=== PATIENT | female | born 1945 | race American Indian/Alaskan Native ===

== ENCOUNTER 2016-11-22 11:45 | Outpatient (CLI) | payer MEDICARE ==
[2016-11-22 13:30] LABS: Blood Urea Nitrogen 21 mg/dL (7-17)
[2016-11-22] MEDS ORDERED: BENADRYL IV ONE (14:03)
[2016-11-22] MEDS ORDERED: BENADRYL ONE (14:06)
[2016-11-22] MEDS ORDERED: NACL ONE (14:16)
--- NOTE | 2016-11-23 08:46 | Cat Scan Report ---
CT ANGIOGRAM NECK HISTORY: Occlusion and stenosis of bilateral carotid arteries. TECHNIQUE: Helical CT images in 0.625 mm reformats. Sagittal and coronal reformatted images. Rotational MIP images. 3-dimensional volume rendering technique. NASCET criteria was utilized. FINDINGS: The visualized aortic arch, innominate artery and proximal bilateral subclavian arteries are widely patent with less than 10% stenosis. The bilateral common carotid arteries are widely patent and without disease and demonstrate less than 10% stenosis. Minimal partially calcified plaques are identified in both carotid bulbs with less than 10% stenosis. There are mild atherosclerotic calcifications in the cavernous and supraclinoid portions of the distal ICAs bilaterally with less than 20% stenosis. The remainder the ICAs are widely patent. The vertebral arteries are co-dominant and widely patent demonstrating less than 20% stenosis. There is no evidence for hemodynamically significant stenosis, dissection or aneurysm. COMMENT: A solitary heterogeneously enhancing right thyroid lobe mass measures 1.6 cm. There is internal cystic change but no calcifications. The remainder of the thyroid gland is normal. No cervical adenopathy is appreciated. IMPRESSION: Minimal atherosclerotic disease as outlined above. No hemodynamically significant stenosis in the neck. Slightly complex solitary right thyroid mass as described. Further evaluation with ultrasound is recommended.
--- NOTE | 2016-11-23 08:58 | Cat Scan Report ---
CT HEAD WITH AND WITHOUT CONTRAST HISTORY: Occlusion and stenosis of bilateral carotid arteries TECHNIQUE: Helical CT before and after IV contrast. Sagittal and coronal reformatted images. FINDINGS: No comparison. This examination is slightly limited because the contrast images were obtained from CTA images from a CTA neck performed the same day. This will limit the detection of enhancing mass. Having said that, the brain parenchyma attenuation and its pagan-white interface appear normal. There is no evidence for hemorrhage, mass, chronic infarct or significant chronic white matter changes. Ventricular size is normal. The posterior fossa and contents are within normal limits. The paranasal sinuses and mastoid air cells are well-aerated. Normal orbital cavities. IMPRESSION: Unremarkable CT head with and without contrast.
== END 2016-11-22 11:46 | disposition home or self-care (01) ==
LOC: CT 11:45
PROVIDERS: ATTEND Radiology Diagnostic Radiology
DX: I65.23 Occlusion and stenosis of bilateral carotid arteries (principal); I70.0 Atherosclerosis of aorta; E07.89 Other specified disorders of thyroid; R51 Headache
CPT/HCPCS: 36415; 70470; 70498; 82565; 84520; 96374; 96375; J1200; J2930; Q9967

== ENCOUNTER 2018-02-26 08:41 | Outpatient (CLI) | payer MEDICARE ==
--- NOTE | 2018-02-26 16:13 | Ultrasound Report ---
TRANSABDOMINAL AND TRANSVAGINAL PELVIC ULTRASOUND: 02/26/18 09:00:00 CLINICAL: Right ovarian mass. FINDINGS: Transabdominal and transvaginal pelvic ultrasound demonstrated absence of the uterus and a normal vaginal cuff. No ovaries identified.No adnexal mass. No free fluid. Normal urinary bladder. IMPRESSION: Normal pelvis status post hysterectomy. No right adnexal or ovarian mass is identified.
== END 2018-02-26 08:42 | disposition home or self-care (01) ==
LOC: SPVWC 08:41
PROVIDERS: ATTEND Family Medicine
DX: N83.9 Noninflammatory disorder of ovary, fallopian tube and broad ligament, unspecified (principal); Z90.710 Acquired absence of both cervix and uterus
CPT/HCPCS: 76830; 76856

== ENCOUNTER 2018-06-18 13:51 | Outpatient (CLI) | payer MEDICARE ==
--- NOTE | 2018-06-20 10:21 | Mammography Report ---
BILATERAL DIGITAL SCREENING MAMMOGRAM with CAD: 06/18/18 13:51:00 CLINICAL: Routine screening. COMPARISON:None available. FINDINGS: The breasts are heterogeneously dense, which may obscure small masses. No mass, architectural distortion or suspicious calcifications. IMPRESSION: No mammographic evidence of malignancy. BI-RADS CATEGORY: 1 - - Negative RECOMMENDATION: Routine mammographic screening in one year. COMMENT: Patient follow-up letters are generated by our [employer] application.
== END 2018-06-18 13:52 | disposition home or self-care (01) ==
LOC: SPVWC 13:51
PROVIDERS: ATTEND Family Medicine
DX: Z12.31 Encounter for screening mammogram for malignant neoplasm of breast (principal); Z91.010 Allergy to peanuts; Z91.030 Bee allergy status; Z91.018 Allergy to other foods
CPT/HCPCS: 77067

== ENCOUNTER 2020-07-13 09:26 | Outpatient (CLI) | payer MEDICARE ==
--- NOTE | 2020-07-13 12:18 | Mammography Report ---
DIGITAL SCREENING MAMMOGRAM WITH CAD, 07/13/2020 INDICATION: Routine screening mammography. TECHNIQUE: Digital bilateral 2D mammography was obtained in the craniocaudal and mediolateral obliq ue projections. This examination was interpreted with the benefit of Computer-Aided Detection analysi s. COMPARISON: 06/18/2018 FINDINGS: Breast Density: The breasts are heterogeneously dense, which may obscure small masses. There is no evidence of dominant mass, suspicious calcifications or architectural distortion in eithe r breast. No interval change. IMPRESSION: No evidence of malignancy. Follow up recommendation: Routine yearly BI-RADS Category 1: Negative. A "normal" or negative report should not discourage follow up or biopsy of a clinically significant f inding. A written summary of these findings will be mailed to the patient. The patient will be entered into a mammography reporting system which will generate a reminder letter for the patient's next appointmen t at the appropriate interval. The [employer] recommends yearly mammograms starting at age 40 and continuing as l radha as a woman is in good health. Breast MRI is recommended for women with an approximate 20-25% or greater lifetime risk of breast cancer, including women with a strong family history of breast or ova jessica cancer or who have been treated for Hodgkin's disease. Signer Name: Serena Julien MD Signed: 07/13/2020 12:13 PM Workstation Name: [id number]
== END 2020-07-13 09:27 | disposition home or self-care (01) ==
LOC: SPVWC 09:26
PROVIDERS: ATTEND Family Medicine
DX: Z12.31 Encounter for screening mammogram for malignant neoplasm of breast (principal)
CPT/HCPCS: 77067

== ENCOUNTER 2021-11-22 08:32 | Outpatient (CLI) | payer MEDICARE ==
--- NOTE | 2021-11-22 12:31 | Mammography Report ---
DIGITAL SCREENING MAMMOGRAM WITH CAD, 11/22/2021 CLINICAL INFORMATION / INDICATION: Routine screening mammography. SCREENING MAMMO Z12.31 TECHNIQUE: Digital bilateral 2D mammography was obtained in the craniocaudal and mediolateral obliqu e projections. This examination was interpreted with the benefit of Computer-Aided Detection analysis . COMPARISON: 07/13/2020. FINDINGS: Breast Density: There are scattered areas of fibroglandular density. No dominant mass, suspicious calcifications, or architectural distortion in either breast. IMPRESSION: No mammographic evidence of malignancy. Follow up recommendation: Routine yearly BI-RADS Category 1: NEGATIVE A "normal" or negative report should not discourage follow up or biopsy of a clinically significant f inding. A written summary of these findings will be mailed to the patient. The patient will be entered into a mammography reporting system which will generate a reminder letter for the patient's next appointmen t at the appropriate interval. The [employer] recommends yearly mammograms starting at age 40 and continuing as l radha as a woman is in good health. Breast MRI is recommended for women with an approximate 20-25% or greater lifetime risk of breast cancer, including women with a strong family history of breast or ova jessica cancer or who have been treated for Hodgkin's disease. Signer Name: Sourav Kenney MD Signed: 11/22/2021 12:26 PM Workstation Name: [id number]
--- NOTE | 2021-11-22 17:14 | Mammography Report ---
DEXA BONE DENSITY SCAN INDICATION / CLINICAL INFORMATION: AGE RELATED ASYMPPTOMATIC MENOPAUSE Z78.0. 76 years Female COMPARISON: None available. LUMBAR SPINE, L1-L4: - Bone mineral density (BMD) = 0.919 g/cm2. - T-score = -2.1 - Z-score = 0.6 Change (%) since most recent prior (if available): None available. LEFT HIP, NECK : - Bone mineral density (BMD) = 0.661 g/cm2. - T-score = -2.0 - Z-score = -0.4 Change (%) since most recent prior (if available): None available. IMPRESSION: 1. WHO Classification: Osteopenia. Fracture Risk: Increased. Note: 10-Year Fracture Risk (FRAX) not reported. This DEXA unit lacks FRAX functionality. BMD Reporting Guidelines (ISCD, 2015) BMD Reporting in Postmenopausal Women and in Men Age 50 and Older - T-scores are preferred. - The WHO densitometric classification is applicable. BMD Reporting in Females Prior to Menopause and in Males Younger Than Age 50 - Z-scores, not T-scores, are preferred. This is particularly important in children. - A Z-score of -2.0 or lower is defined as below the expected range for age, and a Z-score above -2.0 is within the expected range for age. - Osteoporosis cannot be diagnosed in men under age 50 on the basis of BMD alone. - The WHO diagnostic criteria may be applied to women in the menopausal transition. http://www.iscd.org/official-positions/2327-pzqu-dfktthmx-positions-adult/ Signer Name: Ryan Villa MD Signed: 11/22/2021 5:10 PM Workstation Name: [id number]
== END 2021-11-22 08:33 | disposition home or self-care (01) ==
LOC: SPVWC 08:32
PROVIDERS: ATTEND Family Medicine
DX: Z12.31 Encounter for screening mammogram for malignant neoplasm of breast (principal); M85.88 Other specified disorders of bone density and structure, other site; Z78.0 Asymptomatic menopausal state
CPT/HCPCS: 77067; 77080